=== PATIENT | male | born 1955 | race Caucasian/White ===

== ENCOUNTER → 2020-09-22 | Outpatient (CLI) | payer BC ==
[~2020-09-22] MED LIST: ACET-1600 PO; AMLO-211 PO; EZET10TA70 PO; GABA300C PO; GLIM4TAB8 PO; HYDR25TA6 PO; IBUP-1223 PO; INSU100I13 SC; LISI-167 PO; TRULICITY
[2020-09-22 12:52] LABS: MICROSCOPIC NOT IND
[2020-09-22 12:53] LABS: BASOPHILS % (AUTO) 1 % (0-1); EOSINOPHILS % (AUTO) 6 % (1-7); LYMPHOCYTES % (AUTO) 32 % (22-44); MEAN CORPUSCULAR HEMOGLOBIN 31.9 pg (27.5-34.5); MEAN CORPUSCULAR HGB CONC 34.2 g/dL (33.2-36.2); MONOCYTES % (AUTO) 10 % (2-9); NEUTROPHILS % (AUTO) 52 % (42-75); PLATELET COUNT 269 x10^3/uL (130-400); RED BLOOD COUNT 5.04 x10^6/uL (4.38-5.82); RED CELL DISTRIBUTION WIDTH 13.1 % (9.4-14.8)
[2020-09-22 12:54] LABS: MD NO
[2020-09-22 13:02] LABS: ALANINE AMINOTRANSFERASE 43 U/L (12-78); ANION GAP 8 mmol/L (5-15); CHLORIDE 108 mmol/L (98-107); CREATININE 0.95 mg/dL (0.7-1.3)
[2020-09-22 13:04] LABS: INTERNATIONAL NORMALIZED RATIO 1.02 (0.93-1.1); PROTHROMBIN TIME 10.9 Seconds (9.6-11.5)
[2020-09-22 13:05] LABS: ALKALINE PHOSPHATASE 72 U/L (45-117); BILIRUBIN,TOTAL 0.3 mg/dL (0.2-1.0); TOTAL PROTEIN 7.6 g/dL (6.4-8.2)
== END | disposition home or self-care (01) ==
LOC: STAR 11:48
PROVIDERS: ATTEND Neurological Surgery
DX: Z01.810 Encounter for preprocedural cardiovascular examination (principal); Z01.812 Encounter for preprocedural laboratory examination; Z01.811 Encounter for preprocedural respiratory examination; M48.02 Spinal stenosis, cervical region; R79.1 Abnormal coagulation profile; R94.31 Abnormal electrocardiogram [ECG] [EKG]; R82.90 Unspecified abnormal findings in urine; M47.22 Other spondylosis with radiculopathy, cervical region; M25.78 Osteophyte, vertebrae; Z20.822 Contact with and (suspected) exposure to COVID-19
CPT/HCPCS: 36415; 71046; 72050; 80053; 81003; 85025; 85610; 85730; 93005; U0003

== ENCOUNTER 2020-09-26 11:51 | Inpatient (IN) | payer BC, OTHER ==
[~2020-09-26] VITALS: Ht 177.8 cm; Wt 108.5 kg
[2020-10-24 12:46] LABS: BASOPHILS % (AUTO) 3 % (0-1); EOSINOPHILS % (AUTO) 8 % (1-7); LYMPHOCYTES % (AUTO) 31 % (22-44); MEAN CORPUSCULAR HEMOGLOBIN 32.5 pg (27.5-34.5); MEAN PLATELET VOLUME 8.4 fL (7.4-10.4); MONOCYTES % (AUTO) 11 % (2-9); NEUTROPHILS % (AUTO) 48 % (42-75); PLATELET COUNT 255 x10^3/uL (130-400); RED BLOOD COUNT 4.75 x10^6/uL (4.38-5.82); RED CELL DISTRIBUTION WIDTH 13.1 % (9.4-14.8)
[2020-10-24 12:47] LABS: MD NO
[2020-10-24 12:58] LABS: ALANINE AMINOTRANSFERASE 32 U/L (12-78); ALBUMIN 3.8 g/dL (3.4-5.0); CALCIUM 8.9 mg/dL (8.5-10.1); CHLORIDE 106 mmol/L (98-107); INTERNATIONAL NORMALIZED RATIO 0.99 (0.93-1.1); PROTHROMBIN TIME 10.6 Seconds (9.6-11.5)
[2020-10-24 13:00] LABS: ALKALINE PHOSPHATASE 88 U/L (45-117); BILIRUBIN,TOTAL 0.2 mg/dL (0.2-1.0); TOTAL PROTEIN 7.3 g/dL (6.4-8.2)
[2020-10-24 13:04] LABS: MICROSCOPIC NOT IND
[2020-10-24 13:16] LABS: ANION GAP 6 mmol/L (5-15)
[2020-10-27] MEDS ORDERED: LACTATED RINGERS 1,000 ML IV SCH (06:00)
[2020-10-27] MEDS ORDERED: CHLORHEXIDINE 15 ML UDC PO ONE (06:00)
[2020-10-27] MEDS ORDERED: DULA1.5P SQ (06:03)
[2020-10-27] MEDS ORDERED: CHLORHEXIDINE 15 ML UDC ONE (06:09)
[2020-10-27] MEDS ORDERED: FENTANYL PF 250 MCG/5ML ONE ×2 (06:10→07:22)
[2020-10-27] MEDS ORDERED: MIDAZOLAM 1 MG/ML, 2ML ONE (06:10)
[2020-10-27] MEDS ORDERED: ONDANSETRON 2MG/ML, 2ML ONE (06:17)
[2020-10-27] MEDS ORDERED: DEXAMETHASONE 4 MG/ML, 1ML ONE (06:17)
[2020-10-27] MEDS ORDERED: CEFAZOLIN 1,000 MG ONE (06:17)
[2020-10-27] MEDS ORDERED: ROCURONIUM 10MG/ML,5ML ONE (06:17)
[2020-10-27] MEDS ORDERED: GLYCOPYRROLATE 0.2MG/1ML, 5ML ONE (06:17)
[2020-10-27] MEDS ORDERED: PROPOFOL 10 MG/ML, 20ML ONE (06:17)
[2020-10-27] MEDS ORDERED: NEOSTIGMINE 1 MG/ML, 10ML ONE (06:17)
[2020-10-27] MEDS ORDERED: PROPOFOL 100 ML ONE (06:18)
[2020-10-27] MEDS ORDERED: BUPIVACAINE/PF 0.5% ONE ×2 (06:39→07:32)
[2020-10-27] MEDS ORDERED: EPINEPHRINE 1 MG/ML, 1ML ONE (06:40)
[2020-10-27] MEDS ORDERED: BACITRACIN 50,000 UNIT ONE (06:40)
[2020-10-27] MEDS ORDERED: OXYcodone 5 MG/5 ML ORAL.SOL UDC PO PRN (07:00)
[2020-10-27] MEDS ORDERED: FENTANYL PF 100 MCG/2ML IV PRN (07:00)
[2020-10-27] MEDS ORDERED: hydrALAzine 20 MG/ML, 1ML IV PRN (07:00)
[2020-10-27] MEDS ORDERED: ONDANSETRON 2MG/ML, 2ML IVPush PRN ×2 (07:00→09:00)
[2020-10-27] MEDS ORDERED: ACETAMINOPHEN 325 MG TABLET PO PRN (07:00)
[2020-10-27] MEDS ORDERED: HYDROmorphone 1 MG/ML, 1ML INJ IVPush PRN (07:00)
[2020-10-27] MEDS ORDERED: morphine SULFATE 10 MG/ML, 1ML IVPush PRN ×2 (07:00→09:00)
[2020-10-27] MEDS ORDERED: MEPERIDINE/PF 25MG/0.5ML IVPush PRN (07:00)
[2020-10-27] MEDS ORDERED: SUGAMMADEX 200 MG/2 ML IVPush ONE (07:31)
[2020-10-27] MEDS ORDERED: FENTANYL PF 100 MCG/2ML ONE (07:59)
[2020-10-27] MEDS ORDERED: DIPHENHYDRAMINE 50 MG/ML, 1ML IVPush PRN (09:00)
[2020-10-27] MEDS ORDERED: CYCLOBENZAPRINE 10 MG TABLET PO PRN (09:00)
[2020-10-27] MEDS ORDERED: MAGNESIUM HYDROXIDE 8%, 30ML UDC PO PRN (09:00)
[2020-10-27] MEDS ORDERED: INSULIN GLARGINE 100 UNITS/ML, PEN HOMEINJ SCH (09:00)
[2020-10-27] MEDS ORDERED: INSULIN REGULAR 100 UNITS/ML, 3ML VIAL SQ-INSULIN PRN (09:00)
[2020-10-27] MEDS ORDERED: OXYcodone/APAP 5/325MG TABLET PO PRN (09:00)
[2020-10-27] MEDS ORDERED: LABETALOL 5MG/ML, 20ML IVPush PRN (09:00)
[2020-10-27] MEDS ORDERED: PHARMACY MAY ADJ FOR RENAL FX MC PRN (09:00)
[2020-10-27] MEDS ORDERED: METHOCARBAMOL 750 MG TABLET PO PRN (09:00)
[2020-10-27] MEDS ORDERED: SENNA/DOCUSATE TABLET PO PRN (09:00)
[2020-10-27] MEDS ORDERED: PROMETHAZINE 25 MG/ML, 1ML IM PRN (09:00)
[2020-10-27] MEDS ORDERED: DIPHENHYDRAMINE 50 MG CAPSULE PO PRN (09:00)
[2020-10-27] MEDS ORDERED: LABETALOL 5MG/ML, 20ML ONE (09:35)
[2020-10-27] MEDS: LABETALOL 5MG/ML, 20ML IV PRN ×2 (09:36→09:46)
[2020-10-27] MEDS ORDERED: METHOCARBAMOL 1,000 MG in DEXTROSE 5% 100 ML IV ONE (10:00)
[2020-10-27] MEDS ORDERED: NALOXONE 0.4 MG/ML, 1ML ONE (10:23)
[2020-10-27] MEDS: SODIUM CHLORIDE FLUSH 10ML SYR IVF SCH ×2 (11:37→20:10)
[2020-10-27] MEDS: NS + 20MEQ KCL 1,000 ML IV SCH ×2 (11:41→22:20)
[2020-10-27] MEDS: LISINOPRIL 10 MG TABLET PO SCH (11:42)
[2020-10-27] MEDS: HYDROCHLOROTHIAZIDE 25 MG TABLET PO SCH (11:42)
[2020-10-27] MEDS: AMLODIPINE 10 MG TAB PO SCH (11:42)
[2020-10-27] MEDS: EZETIMIBE 10 MG TABLET PO SCH (11:42)
[2020-10-27] MEDS: GABAPENTIN 300 MG CAPSULE PO SCH ×2 (11:42→20:10)
[2020-10-27] MEDS: GLIMEPIRIDE 4 MG TABLET PO SCH (11:42)
[2020-10-27] MEDS: HYDROcodone/APAP 10/325 MG TABLET PO PRN ×3 (11:42→21:15)
[2020-10-27 12:13] VITALS: BP 146/76
[2020-10-27] MEDS: CEFAZOLIN PMX 1GM/50ML 50 ML IVPB SCH ×2 (14:01→21:30)
[2020-10-27 19:30] VITALS: BP 148/71
[2020-10-27] MEDS: INSULIN GLARGINE 100 UNITS/ML, PEN SQ-INSULIN SCH (21:29)
[2020-10-28] MEDS: HYDROcodone/APAP 10/325 MG TABLET PO PRN ×3 (01:12→11:16)
[2020-10-28 01:29] VITALS: BP 135/56
[2020-10-28 06:38] VITALS: BP 135/72
[2020-10-28] MEDS ORDERED: CYCL10TA2 PO (07:34)
[2020-10-28] MEDS ORDERED: HYDR1TAB53 PO (07:34)
[2020-10-28] MEDS: GABAPENTIN 300 MG CAPSULE PO SCH (08:58)
[2020-10-28] MEDS: GLIMEPIRIDE 4 MG TABLET PO SCH (08:58)
[2020-10-28] MEDS: INSULIN GLARGINE 100 UNITS/ML, PEN SQ-INSULIN SCH (08:59)
[2020-10-28] MEDS: HYDROCHLOROTHIAZIDE 25 MG TABLET PO SCH (09:00)
[2020-10-28] MEDS: AMLODIPINE 10 MG TAB PO SCH (09:00)
[2020-10-28] MEDS: EZETIMIBE 10 MG TABLET PO SCH (09:00)
[2020-10-28] MEDS: SODIUM CHLORIDE FLUSH 10ML SYR IVF SCH (09:01)
[2020-10-28] MEDS: LISINOPRIL 10 MG TABLET PO SCH (09:01)
[2020-10-28] MEDS: NS + 20MEQ KCL 1,000 ML IV SCH (10:54)
[2020-10-28 11:16] VITALS: BP 128/64
== END 2020-10-28 12:00 | disposition home or self-care (01) | DRG 473 ==
LOC: ORIP 10-27 05:22 → 4NE 10-27 10:28 → DCLOUNGE 10-28 11:53
PROVIDERS: ADMIT Neurological Surgery; ATTEND Neurological Surgery
PROC: 0RG20A0 Fusion of 2 or more Cervical Vertebral Joints with Interbody Fusion Device, Anterior Approach, Anterior Column, Open Approach (ICD-10-PCS; 2020-10-27)
PROC: 4A11X4G Monitoring of Peripheral Nervous Electrical Activity, Intraoperative, External Approach (ICD-10-PCS; 2020-10-27)
PROC: 0RB30ZZ Excision of Cervical Vertebral Disc, Open Approach (ICD-10-PCS; principal; 2020-10-27 07:00)
DX: M48.02 Spinal stenosis, cervical region (principal); M50.123 Cervical disc disorder at C6-C7 level with radiculopathy; G89.29 Other chronic pain; Z20.822 Contact with and (suspected) exposure to COVID-19
CPT/HCPCS: 36415; 72040; S0020; 80053; 81003; 82962; 85025; 85610; 85730; 86850; 86900; 93005; 95938; 95941; C1713; G0378; J0171; J0690; J1100; J2250; J2310; J2405; J2704; J2710; J3010; J3480; C1762; C1889; J1815; J2800; J7120; U0003